=== PATIENT | male | born 1935 | race Caucasian/White ===

== ENCOUNTER 2017-02-18 09:56 | Day surgery (SDC) | payer OTHER ==
[~2017-02-18] VITALS: Ht 172.7 cm; Wt 77.1 kg
[~2017-02-18 09:56] MED LIST: ASPIRIN81 M2 PO; FLOMAX0.4 MG PO; INSULIN PUMP MC; LIPITOR80 MG PO; LISINOPRIL-HCT1 EAC3 PO; NEURONTIN300 MG PO
[2017-02-18 10:35] LABS: POINT-OF-CARE METER ID UU14174212
[2017-02-18 10:40] VITALS: BP 152/58
[2017-02-18 13:12] LABS: POINT-OF-CARE METER ID UU13113675
[2017-02-18 13:24] VITALS: BP 198/81
[2017-02-18 14:11] VITALS: BP 204/85
== END 2017-02-18 14:11 | disposition home or self-care (01) ==
LOC: SDC 09:56
PROVIDERS: Ophthalmology
DX: H35.371 Puckering of macula, right eye (principal); H35.341 Macular cyst, hole, or pseudohole, right eye; I10 Essential (primary) hypertension; E11.9 Type 2 diabetes mellitus without complications; E03.9 Hypothyroidism, unspecified; K21.9 Gastro-esophageal reflux disease without esophagitis; E78.2 Mixed hyperlipidemia; Z79.4 Long term (current) use of insulin; Z96.41 Presence of insulin pump (external) (internal); Z79.82 Long term (current) use of aspirin
CPT/HCPCS: 82948; J0690; J1100; J2795; J3300